=== PATIENT | female | born 1985 | race Caucasian/White ===

== ENCOUNTER 2018-01-10 09:22 | Observation (INO) | payer BC ==
[~2018-01-10] VITALS: Ht 160 cm; Wt 69.9 kg
[2018-01-10 10:36] VITALS: BP 102/60
[2018-01-10 10:59] LABS: GLUCOMETER DEV NAME(LOC) 4S.; GLUCOSE,POINT OF CARE 73 MG/DL (70-110)
[2018-01-10] MEDS ORDERED: PNV11TAB PO (13:26)
== END 2018-01-10 11:20 | disposition home or self-care (01) ==
LOC: 4S 09:54
PROVIDERS: ADMIT Obstetrics & Gynecology; ATTEND Obstetrics & Gynecology
DX: O24.410 Gestational diabetes mellitus in pregnancy, diet controlled (principal); Z3A.36 36 weeks gestation of pregnancy
CPT/HCPCS: 81002; 82962; G0378

== ENCOUNTER 2018-01-16 08:49 | Observation (INO) | payer BC ==
[~2018-01-16] VITALS: Ht 160 cm; Wt 70.3 kg
[~2018-01-16 08:49] MED LIST: PNV11TAB PO
[2018-01-16 09:22] VITALS: BP 101/58
[2018-01-16 14:49] LABS: GLUCOMETER DEV NAME(LOC) 4S.; GLUCOSE,POINT OF CARE 88 MG/DL (70-110)
== END 2018-01-16 10:50 | disposition home or self-care (01) ==
LOC: 4S 08:49
PROVIDERS: ADMIT Obstetrics & Gynecology; ATTEND Obstetrics & Gynecology
DX: O24.410 Gestational diabetes mellitus in pregnancy, diet controlled (principal); Z3A.37 37 weeks gestation of pregnancy
CPT/HCPCS: 81002; 82962; G0378

== ENCOUNTER 2018-01-23 08:43 | Observation (INO) | payer BC ==
[~2018-01-23] VITALS: Ht 160 cm; Wt 69.9 kg
[2018-01-23 09:28] VITALS: BP 91/54
[2018-01-23 10:29] LABS: GLUCOMETER DEV NAME(LOC) 4S.; GLUCOSE,POINT OF CARE 141 MG/DL (70-110)
[2018-01-23] MEDS ORDERED: FentaNYL CITRATE-PF 100 MCG/2 ML VIAL ONE (11:56)
[2018-01-23] MEDS ORDERED: MORPHINE SULFATE/PF 0.5 MG/ML 10 ML AMP ONE (11:56)
[2018-01-23] MEDS ORDERED: ACETAMINOPHEN 1000 MG/ISO-OSM 0 ML IV ONE (11:56)
[2018-01-23] MEDS ORDERED: BUPIVACAINE HCL/DEX-WATER/PF 0.75% 2 ML AMP ONE (11:56)
== END 2018-01-23 11:55 | disposition home or self-care (01) ==
LOC: 4S 08:43
PROVIDERS: ADMIT Obstetrics & Gynecology; ATTEND Obstetrics & Gynecology
DX: O24.419 Gestational diabetes mellitus in pregnancy, unspecified control (principal); Z3A.38 38 weeks gestation of pregnancy
CPT/HCPCS: 36415; 76805; 81002; 82962; 83036; G0378; J0131; J2274; J3010; J3490